=== PATIENT | female | born 1945 | race Caucasian/White ===

== ENCOUNTER 2021-07-18 12:40 | Outpatient (CLI) | payer MEDICARE | END 2021-07-18 12:41 | disposition critical access hospital (66) | LOC: EMS 12:40 | DX: R11.2 Nausea with vomiting, unspecified (principal); R19.7 Diarrhea, unspecified; R30.0 Dysuria | CPT/HCPCS: A0425; A0427 ==

== ENCOUNTER 2021-07-18 13:02 | Emergency (ER) | payer BC, MEDICARE ==
[2021-07-18] MEDS ORDERED: SODIUM CHLORIDE 0.9% 1,000 ML IV STA (13:16)
--- NOTE | 2021-07-18 13:17 | ED Physician Documentation ---
History of Present Illness - Stated complaint Stated Complaint: FEMALE - Additonal information Additional information: 75-year-old female presents emergency department for evaluation of concern that she may have a urinary tract infection. She reports extreme fatigue and gener alized weakness as well as some nausea and vomiting that began about 3 to 4 days ago. She states it hurts to pee, her urine is red and she is going more frequently than normal. No history of recent or recurrent urinary tract infections. No flank pain. Recently underwent cataract surgery and is taking antibiotic eyedrops. Review of Systems Constitutional: denies: Fever, Chills Eyes: reports: Reviewed and negative Ears: reports: Reviewed and negative Throat: reports: Reviewed and negative Cardiac: reports: Reviewed and negative Respiratory: reports: Reviewed and negative GI: reports: Nausea, Vomiting. denies: Abdominal Pain, Constipation : reports: Dysuria, Frequency, Hesitancy, Hematuria Skin: reports: Reviewed and negative Musculoskeletal: reports: Reviewed and negative Neurologic: denies: Generalized weakness, Focal weakness, Numbness Psychiatric: reports: Reviewed and negative Endocrine: reports: Reviewed and negative PD PAST MEDICAL HISTORY - Allergies Allergies/Adverse Reactions: Allergies Allergy/AdvReac Type Severity Reaction Status Date / Time Penicillins Allergy Rash Verified 07/18/21 13:15 PD ED PE EXPANDED - General General: Alert, No acute distress, Well developed/nourished - Neck Neck: Supple w/out meningeal sx. No: Adenopathy - Cardiac Cardiac: Regular Rate, Radial strong equal, Pedal strong equal, Cap refill < 2 sec - Respiratory Respiratory: Clear to ausultation eva. No: Distress, Labored - Abdomen Abdomen: Normal Bowel sounds, Tender to palpation, Suprapubic - Back Back: Normal exam, Normal ROM. No: Vertebral tenderness, Soft tissue tenderness - Derm Derm: Normal color, Warm and dry. No: Rash - Extremities Extremities: Normal. No: Deformity, Tenderness - Neuro Neuro: Alert and Oriented X 3, CNII-XII intact - GCS Eye Opening: Spontaneous Motor: Obeys Commands Verbal: Oriented Total: 15 Results - Vitals Vitals: Vital Signs - 24 hr 07/18/21 13:12 Temperature 97.6 C H Heart Rate 70 Respiratory 15 Rate Blood Pressure 156/75 H O2 Saturation 97 Oxygen O2 Source Room air - Labs Labs: Laboratory Tests 07/18/21 07/18/21 07/18/21 13:25 13:25 13:33 WBC 4.9 RBC 4.42 Hgb 13.6 Hct 41.5 MCV 93.9 MCH 30.8 MCHC 32.8 RDW 13.7 Plt Count 262 MPV 9.8 Neut # (Auto) 3.0 Lymph # (Auto) 1.2 L Hinds # (Auto) 0.5 Eos # (Auto) 0.1 Baso # (Auto) 0.0 Absolute Nucleated RBC 0.00 Nucleated RBC % 0.0 Sodium 143 Potassium 4.2 Chloride 109 Carbon Dioxide 21 Anion Gap 13.0 BUN 26 H Creatinine 0.7 Estimated GFR (MDRD) 82 L Glucose 165 H Calcium 8.8 Total Bilirubin 1.1 H AST 24 ALT 21 Alkaline Phosphatase 81 Total Protein 6.6 L Albumin 3.9 Globulin 2.7 Albumin/Globulin Ratio 1.4 Lipase 26 Urine Color YELLOW Urine Clarity CLEAR Urine pH 5.5 Ur Specific Casey >=1.030 H Urine Protein NEGATIVE Urine Glucose (UA) NEGATIVE Urine Ketones >=80 H Urine Occult Blood NEGATIVE Urine Nitrite NEGATIVE Urine Bilirubin MODERATE H Urine Urobilinogen 0.2 (NORMAL) Ur Leukocyte Esterase NEGATIVE Ur Microscopic Review NOT INDICATED Urine Culture Comments NOT INDICATED - Rads (name of study) CT abd Radiology: Final report received (Cystic-appearing lesion in the right adnexa which appears mildly complex. Differential considerations include mildly complex ovarian cyst versus peritoneal inclusion cyst. Consider MRI and/or SOLID WASTE LANDFILL TECHNICIAN consultation) PD MEDICAL DECISION MAKING - ED course Complexity details: reviewed results, re-evaluated patient, considered differential, d/w patient ED course: 75-year-old female presents emergency department for evaluation of generalized fatigue, diarrhea and reported 4 to 5 days of dysuria urgency and frequency as well as dark-colored urine/blood. Patient does not present with fever tachycardia or hypotension. Her abdominal exam was relatively benign sparing some minor suprapubic tenderness. Screening labs showed no concerns for leukocytosis or Worrisome electrolyte abnormalities. Her urine is not consistent with infection. CT of the abdomen was performed for further differentiation of what she reported to be dark or blood colored urine. No findings to suggest nephrolithiasis or ureterolithiasis. There is a fairly large right adnexal cyst that measures approximately 5.5 cm in widest dimension. This may be an inclusion cyst versus a complex ovarian cyst. Findings were discussed with the patient. She sees [facility] in follow- up. I recommended close follow-up to include further MRI imaging and/or SOLID WASTE LANDFILL TECHNICIAN consultation. Patient is feeling improved in the emergency department after receiving IV fluids. Emergent return precautions were discussed. Departure - Departure Disposition: 01 Home, Self Care Clinical Impression: Adnexal cyst Condition: Stable Record reviewed to determine appropriate education?: Yes Follow-Up: COLLETTE FORD PA-C [Primary Care Provider] - Comments: Martita hood are seen in the emergency department today for diarrhea, fatigue as well as concerns that you may have a urinary tract infection. Your screening labs today did not show any worrisome abnormalities. Your urine showed no signs of infection. We did do a CT of the abdomen to evaluate for possible other causes of your symptoms. It did show a fairly large right adnexal cyst. This should be followed up with your primary care provider. Further evaluation is warranted with either an MRI and/or referral to a reproduction order processor. At any point you feel that your symptoms are worsening, you develop fevers, have uncontrolled vomiting or diarrhea then please return immediately to the ER for a second evaluation.
[2021-07-18 13:34] LABS: BASOPHILS % (AUTO) 0.4 %; EOSINOPHILS # (AUTO) 0.1 10^3/uL (0.0-0.7); EOSINOPHILS % (AUTO) 1.8 %; HCT - HEMATOCRIT 41.5 % (37.0-47.0); HGB - HEMOGLOBIN 13.6 g/dL (12.0-16.0); LYMPHOCYTES # (AUTO) 1.2 10^3/uL (1.5-3.5); LYMPHOCYTES % (AUTO) 25.4 %; MEAN CORPUSCULAR HEMOGLOBIN 30.8 pg (27.0-31.0); MEAN CORPUSCULAR HGB CONC 32.8 g/dL (32.0-36.0); MEAN CORPUSCULAR VOLUME 93.9 fL (81.0-99.0); MEAN PLATELET VOLUME 9.8 fL (7.9-10.8); MONOCYTES # (AUTO) 0.5 10^3/uL (0.0-1.0); MONOCYTES % (AUTO) 9.8 %; NEUTROPHILS % (AUTO) 62.4 %; PLT - PLATELET COUNT 262 10^3/uL (130-450); RED BLOOD COUNT 4.42 10^6/uL (4.20-5.40); RED CELL DISTRIBUTION WIDTH 13.7 % (12.0-15.0); WHITE BLOOD COUNT 4.9 x10^3/uL (4.8-10.8)
[2021-07-18 13:44] LABS: CLARITY,URINE CLEAR (CLEAR); GLUCOSE, URINE (UA) NEGATIVE (NEGATIVE); KETONES,URINE (UA) >=80 mg/dL (NEGATIVE); LEUKOCYTE ESTERASE, URINE NEGATIVE (NEGATIVE); NITRITE,URINE NEGATIVE (NEGATIVE); OCCULT BLOOD,URINE NEGATIVE (NEGATIVE); PH,URINE 5.5 PH (5.0-7.5); PROTEIN,URINE NEGATIVE (NEGATIVE); UROBILINOGEN,URINE 0.2 (NORMAL) E.U./dL (NORMAL)
[2021-07-18 13:45] LABS: ALBUMIN 3.9 g/dL (3.2-5.5); ALBUMIN/GLOBULIN RATIO 1.4 (1.0-2.2); BILIRUBIN,TOTAL 1.1 mg/dL (0.2-1.0); CALCIUM 8.8 mg/dL (8.5-10.3); CREATININE 0.7 mg/dL (0.4-1.0); POTASSIUM 4.2 mmol/L (3.5-5.0); TOTAL PROTEIN 6.6 g/dL (6.7-8.2)
[2021-07-18 13:50] LABS: BILIRUBIN,URINE MODERATE (NEGATIVE); ICTOTEST,URINE POSITIVE
[2021-07-18] MEDS ORDERED: IOVERSOL 320 100 ML VIAL IVP ONE ×2 (15:20→16:45)
--- NOTE | 2021-07-18 16:05 | CT Report ---
PROCEDURE: Abdomen/Pelvis W INDICATIONS: ? hematuria. Abdominal pain x4-5 days. CONTRAST: IV CONTRAST: Optiray 320 ml: 100 PO CONTRAST: *NO PO CONTRAST TECHNIQUE: After the administration of IV contrast, 5 mm thick sections acquired from the diaphragms to the symp hysis. 5 mm thick coronal and sagittal reformats were acquired. For radiation dose reduction, the f ollowing was used: automated exposure control, adjustment of mA and/or kV according to patient size. COMPARISON: None. FINDINGS: Inferior chest: No focal consolidation, pleural effusion, or pneumothorax. No cardiomegaly or perica rdial effusion. Gallbladder: The gallbladder is distended with a smooth thin wall. Biliary tree: No intra-or extrahepatic biliary ductal dilatation. Liver: The liver demonstrates normal enhancement, size, and contour. Spleen: Normal enhancement, size and morphology is seen. Pancreas: Normal morphology without masses or inflammatory changes. Adrenals: Normal size without masses. Kidneys/ureters: Normal size and morphology. No solid masses or hydronephrosis. Vasculature: No evidence of aneurysm or other significant vascular pathology. Calcified edematous c hange of the aorta. Lymphatic system: No pathologic enlargement by size criteria. GI/mesentery: No evidence of intestinal obstruction. Normal appendix. A few scattered descending/sigm oid diverticulosis. Peritoneum/Retroperitoneum: No free intraperitoneal gas or large collection. Urinary bladder: The urinary bladder is distended with a smooth thin wall. Pelvic organs: The uterus appears surgically absent. A 5 x 5.5 cm hypoattenuating lesion is seen in t he right adnexa, which demonstrates attenuation values greater than simple fluid. Bones/soft tissues: No significant abnormality. Dextrocurvature of the lumbar spine with secondary ar throsis. IMPRESSION: 1.Cystic appearing lesion in the right adnexa, which appears mildly complex. Differential considerati ons include a mildly complex ovarian cyst versus peritoneal inclusion cyst. Consider magnetic resonan ce imaging and/or JAVA SQL DEVELOPER consultation for further evaluation. Reviewed by: Noel Chahal MD on 07/18/2021 4:04 PM PDT Approved by: Noel Chahal MD on 07/18/2021 4:04 PM PDT Station ID: [id number]
[2021-07-18 16:39] VITALS: BP 154/102
== END 2021-07-18 16:38 | disposition home or self-care (01) ==
LOC: EDUNIT# → ED 13:02
DX: N83.291 Other ovarian cyst, right side (principal)
CPT/HCPCS: 36415; 74177; 80053; 81003; 83690; 85025; 99282; 99284; Q9967; 81001; 87086